=== PATIENT | male | born 1945 | race African-American/Black ===

== ENCOUNTER 2020-11-12 11:03 | Inpatient (IN) ==
[2020-11-12] MEDS ORDERED: ALBUTEROL/IPRATROPIUM 3 ML NEB RESP TX STA (11:33)
[2020-11-12 11:39] LABS: Basophils % 0.2 % (0.0-0.8); Eosinophils # 0.3 10*3/uL (0.0-0.87); Eosinophils % 2.8 % (0.00-10.9); Hematocrit 39.2 VOL% (42.0-52.0); Hemoglobin 13.3 GM/DL (14.0-18.0); Immature Granulocytes % 0.7 %; Immature Granulocytes Absolute 0.07 #; Lymphocytes # 1.2 10*3/uL (1.4-4.0); Lymphocytes % 11.8 % (21.2-54.2); Mean Corpuscular HGB Conc 33.9 GM/DL (32-36); Mean Corpuscular Volume 88.7 FL (87-102); Mean Platelet Volume 9.7 FL (9.6-12.0); Monocytes % 6.9 % (1.7-12.7); Neutrophils % 77.6 % (38.7-73.9); Platelet Count 334 T/CUMM (130-400); Red Blood Count 4.42 MC/CUMM (3.8-5.5); Red Cell Distribution Width 12.7 % (9.3-17.3); White Blood Count 10.2 T/CUMM (4-12)
[2020-11-12 12:01] LABS: Albumin 2.4 G/DL (3.4-5.0); Bilirubin,Total 1.2 MG/DL (0.2-1.0); Calcium 8.3 MG/DL (8.5-10.1); Ferritin 1414.8 ng/ml (26-388); Osmolality,Calculated 280.4 MOS/KG (273-304); Total Protein 7.7 G/DL (6.4-8.3)
[2020-11-12] MEDS ORDERED: ENOXAPARIN 60 MG/0.6 ML SYRINGE SUBCUT SCH (14:00)
[2020-11-12] MEDS ORDERED: ONDANSETRON 4 MG/2 ML VIAL IV PRN (14:04)
[2020-11-12] MEDS ORDERED: DEXTROSE 50% 25 GM/50 ML VIAL IV PRN (14:04)
[2020-11-12] MEDS ORDERED: PROMETHAZINE 25 MG TABLET PO PRN (14:04)
[2020-11-12] MEDS ORDERED: diphenhydrAMINE CAP 25 MG CAPSULE PO PRN (14:04)
[2020-11-12] MEDS ORDERED: guaiFENesin/DM ER 600-30 MG TABLET PO PRN (14:04)
[2020-11-12] MEDS ORDERED: ZALEPLON 5 MG CAPSULE PO PRN (14:04)
[2020-11-12] MEDS ORDERED: traZODone 50 MG TABLET PO PRN (14:04)
[2020-11-12] MEDS ORDERED: GLUCAGON 1 MG VIAL IM PRN (14:04)
[2020-11-12] MEDS ORDERED: PROMETHAZINE 25 MG/1 ML VIAL IM PRN (14:04)
[2020-11-12] MEDS ORDERED: hydrALAZINE 20 MG/1 ML VIAL IV PRN (14:04)
[2020-11-12 14:18] LABS: ABG HCO3 25.2 MMOL/L (20-26); ABG Oxygen Saturation 94.3 % (95-100); ABG PCO2 38.6 MM HG (35-48); ABG PH 7.424 (7.35-7.45); ABG TCO2 22.2 MMOL/L (23-27)
[2020-11-12] MEDS: ZINC GLUCONATE 50 MG TABLET PO SCH (14:19)
[2020-11-12] MEDS: ASCORBIC ACID 500 MG TABLET PO SCH ×2 (14:19→21:31)
[2020-11-12] MEDS: CHOLECALCIFEROL 1,000 UNIT TABLET PO SCH (14:19)
[2020-11-12] MEDS: FAMOTIDINE 20 MG TABLET PO SCH ×2 (14:19→21:28)
[2020-11-12] MEDS: DEXAMETHASONE 4 MG/1 ML VIAL IV SCH (14:19)
[2020-11-12] MEDS: CETIRIZINE 10 MG TABLET PO SCH (14:19)
[2020-11-12] MEDS ORDERED: AZITHROMYCIN INJ 500 MG in SODIUM CHLORIDE 0.9% 250 ML IV ONE (14:30)
[2020-11-12] MEDS ORDERED: REMDESIVIR 200 MG in SODIUM CHLORIDE 0.9% 210 ML IV ONE (16:00)
[2020-11-12] MEDS ORDERED: ENOXAPARIN 60 MG/0.6 ML SYRINGE SUBCUT ONE (16:00)
[2020-11-12] MEDS: cefTRIAXone 1,000 MG in SYRINGE 1 EACH IV SCH (16:16)
[2020-11-12] MEDS: CLORAZEPATE 3.75 MG TABLET PO SCH ×2 (16:22→21:31)
[2020-11-12] MEDS: MELATONIN 3 MG TABLET PO PRN (21:32)
[2020-11-13 04:14] LABS: ABG HCO3 24.4 MMOL/L (20-26); ABG Oxygen Saturation 95.2 % (95-100); ABG PCO2 44.6 MM HG (35-48); ABG PH 7.367 (7.35-7.45); ABG PO2 83.4 MM HG (80-95)
[2020-11-13 05:05] LABS: Basophils % 0.2 % (0.0-0.8); Eosinophils # 0.1 10*3/uL (0.0-0.87); Eosinophils % 0.8 % (0.00-10.9); Hematocrit 33.4 VOL% (42.0-52.0); Hemoglobin 11.7 GM/DL (14.0-18.0); Immature Granulocytes % 0.8 %; Immature Granulocytes Absolute 0.05 #; Lymphocytes # 1.3 10*3/uL (1.4-4.0); Lymphocytes % 18.9 % (21.2-54.2); Mean Corpuscular Volume 92.3 FL (87-102); Mean Platelet Volume 9.7 FL (9.6-12.0); Monocytes % 5.6 % (1.7-12.7); Neutrophils % 73.7 % (38.7-73.9); Platelet Count 275 T/CUMM (130-400); Red Blood Count 3.62 MC/CUMM (3.8-5.5); Red Cell Distribution Width 12.7 % (9.3-17.3); White Blood Count 6.6 T/CUMM (4-12)
[2020-11-13 05:29] LABS: Band Neutrophils 1 % (0-10); Lymphocytes 13 % (20-55); Platelet Estimate Normal; Segmented Neutrophils 79 % (50-85); Total Cells Counted 100
[2020-11-13 05:37] LABS: Ferritin 1211.5 ng/ml (26-388)
[2020-11-13 05:40] LABS: Risk Ratio 3.89; Thyroid Stimulating Hormone 0.906 uIU/ml (0.358-3.74); VLDL CHOLESTEROL 16.2 MG/DL
[2020-11-13] MEDS: ENOXAPARIN 100 MG/ML SYRINGE SUBCUT SCH ×2 (06:35→18:34)
[2020-11-13 06:42] LABS: Sedimentation Rate-Westergren 45 MM/HR (0-20)
[2020-11-13] MEDS: FAMOTIDINE 20 MG TABLET PO SCH ×2 (09:50→20:37)
[2020-11-13] MEDS: DEXAMETHASONE 4 MG/1 ML VIAL IV SCH (09:50)
[2020-11-13] MEDS: AZITHROMYCIN 250 MG TABLET PO SCH (09:50)
[2020-11-13] MEDS: CETIRIZINE 10 MG TABLET PO SCH (09:50)
[2020-11-13] MEDS: ZINC GLUCONATE 50 MG TABLET PO SCH (09:50)
[2020-11-13] MEDS: CHOLECALCIFEROL 1,000 UNIT TABLET PO SCH (09:50)
[2020-11-13] MEDS: CLORAZEPATE 3.75 MG TABLET PO SCH ×3 (09:50→20:37)
[2020-11-13] MEDS: PANTOPRAZOLE 40 MG TABLET PO SCH (09:50)
[2020-11-13] MEDS: ASCORBIC ACID 500 MG TABLET PO SCH ×2 (09:50→20:37)
[2020-11-13] MEDS: REMDESIVIR 100 MG in SODIUM CHLORIDE 0.9% 100 ML IV SCH (09:54)
[2020-11-13] MEDS ORDERED: SODIUM CHLORIDE 0.9% 1,000 ML IV PRN (14:36)
[2020-11-13] MEDS: cefTRIAXone 1,000 MG in SYRINGE 1 EACH IV SCH (16:05)
[2020-11-13] MEDS: MELATONIN 3 MG TABLET PO PRN (20:37)
[2020-11-14 04:00] LABS: ABG HCO3 25.2 MMOL/L (20-26); ABG Oxygen Saturation 96.1 % (95-100); ABG PCO2 45.7 MM HG (35-48); ABG PH 7.373 (7.35-7.45); ABG PO2 88.6 MM HG (80-95); ABG TCO2 23.7 MMOL/L (23-27); Allen Test Positive
[2020-11-14 04:43] LABS: Basophils % 0.4 % (0.0-0.8); Eosinophils # 0.1 10*3/uL (0.0-0.87); Eosinophils % 0.7 % (0.00-10.9); Hematocrit 36.3 VOL% (42.0-52.0); Hemoglobin 12.2 GM/DL (14.0-18.0); Immature Granulocytes % 0.6 %; Immature Granulocytes Absolute 0.06 #; Lymphocytes # 2.1 10*3/uL (1.4-4.0); Lymphocytes % 18.9 % (21.2-54.2); Mean Corpuscular HGB Conc 33.6 GM/DL (32-36); Mean Corpuscular Volume 92.1 FL (87-102); Mean Platelet Volume 10.3 FL (9.6-12.0); Monocytes % 4.7 % (1.7-12.7); Neutrophils % 74.7 % (38.7-73.9); Platelet Count 268 T/CUMM (130-400); Red Blood Count 3.94 MC/CUMM (3.8-5.5); Red Cell Distribution Width 12.5 % (9.3-17.3); White Blood Count 10.8 T/CUMM (4-12)
[2020-11-14 04:58] LABS: Ferritin 1284.6 ng/ml (26-388)
[2020-11-14] MEDS: ENOXAPARIN 100 MG/ML SYRINGE SUBCUT SCH ×2 (05:45→17:28)
[2020-11-14 05:50] LABS: Albumin 2.1 G/DL (3.4-5.0); Bilirubin,Total 0.8 MG/DL (0.2-1.0); Calcium 8.1 MG/DL (8.5-10.1); Osmolality,Calculated 283.3 MOS/KG (273-304); Total Protein 6.9 G/DL (6.4-8.3)
[2020-11-14 06:29] LABS: Sedimentation Rate-Westergren 67 MM/HR (0-20)
[2020-11-14] MEDS: PANTOPRAZOLE 40 MG TABLET PO SCH (09:10)
[2020-11-14] MEDS: CLORAZEPATE 3.75 MG TABLET PO SCH ×3 (09:10→20:15)
[2020-11-14] MEDS: ASCORBIC ACID 500 MG TABLET PO SCH ×2 (09:10→20:15)
[2020-11-14] MEDS: FAMOTIDINE 20 MG TABLET PO SCH ×2 (09:10→20:15)
[2020-11-14] MEDS: ZINC GLUCONATE 50 MG TABLET PO SCH (09:10)
[2020-11-14] MEDS: DEXAMETHASONE 4 MG/1 ML VIAL IV SCH (09:10)
[2020-11-14] MEDS: AZITHROMYCIN 250 MG TABLET PO SCH (09:10)
[2020-11-14] MEDS: CHOLECALCIFEROL 1,000 UNIT TABLET PO SCH (09:10)
[2020-11-14] MEDS: CETIRIZINE 10 MG TABLET PO SCH (09:10)
[2020-11-14] MEDS: REMDESIVIR 100 MG in SODIUM CHLORIDE 0.9% 100 ML IV SCH (09:13)
[2020-11-14] MEDS: cefTRIAXone 1,000 MG in SYRINGE 1 EACH IV SCH (15:00)
[2020-11-14 23:31] LABS: Specimen Source THROAT
[2020-11-15 05:02] LABS: Allen Test Positive
[2020-11-15 05:06] LABS: ABG Base Excess 1.5 MMOL/L (-2.5-2.5); ABG HCO3 26.5 MMOL/L (20-26); ABG Oxygen Saturation 94.6 % (95-100); ABG PCO2 43.4 MM HG (35-48); ABG PH 7.404 (7.35-7.45); ABG PO2 76.3 MM HG (80-95); ABG TCO2 27.9 MMOL/L (23-27)
[2020-11-15 05:11] LABS: Basophils % 0.4 % (0.0-0.8); Eosinophils # 0.1 10*3/uL (0.0-0.87); Eosinophils % 0.5 % (0.00-10.9); Hematocrit 36.6 VOL% (42.0-52.0); Immature Granulocytes % 0.7 %; Immature Granulocytes Absolute 0.08 #; Lymphocytes # 2.5 10*3/uL (1.4-4.0); Lymphocytes % 21.9 % (21.2-54.2); Mean Corpuscular HGB Conc 32.8 GM/DL (32-36); Mean Corpuscular Volume 90.1 FL (87-102); Mean Platelet Volume 10.1 FL (9.6-12.0); Monocytes % 5.1 % (1.7-12.7); Neutrophils % 71.4 % (38.7-73.9); Platelet Count 257 T/CUMM (130-400); Red Blood Count 4.06 MC/CUMM (3.8-5.5); Red Cell Distribution Width 12.5 % (9.3-17.3); White Blood Count 11.3 T/CUMM (4-12)
[2020-11-15 05:41] LABS: Albumin 2.1 G/DL (3.4-5.0); Bilirubin,Total 0.5 MG/DL (0.2-1.0); Calcium 8.5 MG/DL (8.5-10.1); Osmolality,Calculated 278.5 MOS/KG (273-304); Total Protein 7.3 G/DL (6.4-8.3)
[2020-11-15 05:43] LABS: Ferritin 1070.3 ng/ml (26-388)
[2020-11-15 06:19] LABS: Band Neutrophils 1 % (0-10); Eosinophils 1 % (0-10); Lymphocytes 20 % (20-55); Platelet Estimate Normal; Segmented Neutrophils 75 % (50-85); Total Cells Counted 100
[2020-11-15] MEDS: ENOXAPARIN 100 MG/ML SYRINGE SUBCUT SCH ×2 (06:40→19:19)
[2020-11-15 07:56] LABS: Sedimentation Rate-Westergren 88 MM/HR (0-20)
[2020-11-15] MEDS: PANTOPRAZOLE 40 MG TABLET PO SCH (10:06)
[2020-11-15] MEDS: FAMOTIDINE 20 MG TABLET PO SCH ×2 (10:06→21:14)
[2020-11-15] MEDS: CLORAZEPATE 3.75 MG TABLET PO SCH ×3 (10:06→21:14)
[2020-11-15] MEDS: CHOLECALCIFEROL 1,000 UNIT TABLET PO SCH (10:06)
[2020-11-15] MEDS: REMDESIVIR 100 MG in SODIUM CHLORIDE 0.9% 100 ML IV SCH (10:06)
[2020-11-15] MEDS: DEXAMETHASONE 4 MG/1 ML VIAL IV SCH (10:06)
[2020-11-15] MEDS: ASCORBIC ACID 500 MG TABLET PO SCH ×2 (10:06→21:14)
[2020-11-15] MEDS: ZINC GLUCONATE 50 MG TABLET PO SCH (10:07)
[2020-11-15] MEDS: CETIRIZINE 10 MG TABLET PO SCH (10:07)
[2020-11-15] MEDS: AZITHROMYCIN 250 MG TABLET PO SCH (10:07)
[2020-11-15] MEDS: cefTRIAXone 1,000 MG in SYRINGE 1 EACH IV SCH (16:22)
[2020-11-16 03:50] LABS: ABG Base Excess 2.9 MMOL/L (-2.5-2.5); ABG HCO3 26.9 MMOL/L (20-26); ABG PCO2 45.4 MM HG (35-48); ABG PH 7.402 (7.35-7.45); ABG PO2 76.8 MM HG (80-95); ABG TCO2 25.1 MMOL/L (23-27)
[2020-11-16 06:04] LABS: Basophils % 0.3 % (0.0-0.8); Eosinophils % 0.3 % (0.00-10.9); Hematocrit 39.4 VOL% (42.0-52.0); Immature Granulocytes % 0.8 %; Lymphocytes # 2.7 10*3/uL (1.4-4.0); Lymphocytes % 22.4 % (21.2-54.2); Mean Corpuscular Volume 89.5 FL (87-102); Mean Platelet Volume 10.7 FL (9.6-12.0); Monocytes % 5.6 % (1.7-12.7); Neutrophils % 70.6 % (38.7-73.9); Platelet Count 232 T/CUMM (130-400); Red Cell Distribution Width 12.7 % (9.3-17.3); White Blood Count 11.9 T/CUMM (4-12)
[2020-11-16] MEDS: ENOXAPARIN 100 MG/ML SYRINGE SUBCUT SCH ×2 (06:14→17:00)
[2020-11-16 06:19] LABS: Bilirubin,Total 0.5 MG/DL (0.2-1.0); Calcium 8.6 MG/DL (8.5-10.1); Ferritin 1027.9 ng/ml (26-388); Osmolality,Calculated 280.4 MOS/KG (273-304); Total Protein 7.3 G/DL (6.4-8.3)
[2020-11-16 07:49] LABS: Sedimentation Rate-Westergren 77 MM/HR (0-20)
[2020-11-16] MEDS: DEXAMETHASONE 4 MG/1 ML VIAL IV SCH (08:51)
[2020-11-16] MEDS: PANTOPRAZOLE 40 MG TABLET PO SCH (08:52)
[2020-11-16] MEDS: CETIRIZINE 10 MG TABLET PO SCH (08:52)
[2020-11-16] MEDS: FAMOTIDINE 20 MG TABLET PO SCH ×2 (08:52→20:54)
[2020-11-16] MEDS: CHOLECALCIFEROL 1,000 UNIT TABLET PO SCH (08:52)
[2020-11-16] MEDS: CLORAZEPATE 3.75 MG TABLET PO SCH ×3 (08:52→20:54)
[2020-11-16] MEDS: ASCORBIC ACID 500 MG TABLET PO SCH ×2 (08:52→20:54)
[2020-11-16] MEDS: AZITHROMYCIN 250 MG TABLET PO SCH (08:52)
[2020-11-16] MEDS: REMDESIVIR 100 MG in SODIUM CHLORIDE 0.9% 100 ML IV SCH (09:43)
[2020-11-16] MEDS: ZINC GLUCONATE 50 MG TABLET PO SCH (11:57)
[2020-11-16] MEDS: cefTRIAXone 1,000 MG in SYRINGE 1 EACH IV SCH (15:18)
[2020-11-17 05:17] LABS: ABG Base Excess 2.1 MMOL/L (-2.5-2.5); ABG HCO3 26.2 MMOL/L (20-26); ABG Oxygen Saturation 94.7 % (95-100); ABG PCO2 44.5 MM HG (35-48); ABG PH 7.397 (7.35-7.45); ABG PO2 77.5 MM HG (80-95); ABG TCO2 24.1 MMOL/L (23-27)
[2020-11-17 05:17] LABS: Basophils # 0.1 10*3/uL (0.0-0.2); Basophils % 0.5 % (0.0-0.8); Eosinophils % 0.2 % (0.00-10.9); Hematocrit 39.1 VOL% (42.0-52.0); Hemoglobin 12.9 GM/DL (14.0-18.0); Immature Granulocytes % 1.1 %; Immature Granulocytes Absolute 0.12 #; Lymphocytes # 2.1 10*3/uL (1.4-4.0); Lymphocytes % 18.7 % (21.2-54.2); Mean Corpuscular Volume 90.1 FL (87-102); Mean Platelet Volume 10.9 FL (9.6-12.0); Monocytes % 5.6 % (1.7-12.7); Neutrophils % 73.9 % (38.7-73.9); Platelet Count 255 T/CUMM (130-400); Red Blood Count 4.34 MC/CUMM (3.8-5.5); Red Cell Distribution Width 12.7 % (9.3-17.3); White Blood Count 11.4 T/CUMM (4-12)
[2020-11-17] MEDS: ENOXAPARIN 100 MG/ML SYRINGE SUBCUT SCH ×2 (05:35→20:59)
[2020-11-17 05:45] LABS: Ferritin 927.2 ng/ml (26-388)
[2020-11-17 05:46] LABS: Albumin 2.3 G/DL (3.4-5.0); Bilirubin,Total 0.5 MG/DL (0.2-1.0); Calcium 8.6 MG/DL (8.5-10.1); Osmolality,Calculated 281.4 MOS/KG (273-304); Total Protein 7.4 G/DL (6.4-8.3)
[2020-11-17 06:35] LABS: Sedimentation Rate-Westergren 75 MM/HR (0-20)
[2020-11-17] MEDS: ZINC GLUCONATE 50 MG TABLET PO SCH (08:29)
[2020-11-17] MEDS: PANTOPRAZOLE 40 MG TABLET PO SCH (08:29)
[2020-11-17] MEDS: FAMOTIDINE 20 MG TABLET PO SCH ×2 (08:29→20:59)
[2020-11-17] MEDS: DEXAMETHASONE 4 MG/1 ML VIAL IV SCH (08:29)
[2020-11-17] MEDS: CHOLECALCIFEROL 1,000 UNIT TABLET PO SCH (08:29)
[2020-11-17] MEDS: CLORAZEPATE 3.75 MG TABLET PO SCH ×3 (09:04→20:59)
[2020-11-17] MEDS: ASCORBIC ACID 500 MG TABLET PO SCH ×2 (10:24→20:59)
[2020-11-17] MEDS: CETIRIZINE 10 MG TABLET PO SCH (10:24)
[2020-11-17] MEDS: cefTRIAXone 1,000 MG in SYRINGE 1 EACH IV SCH (14:47)
[2020-11-18 05:23] LABS: Basophils # 0.1 10*3/uL (0.0-0.2); Basophils % 0.4 % (0.0-0.8); Eosinophils # 0.1 10*3/uL (0.0-0.87); Eosinophils % 0.6 % (0.00-10.9); Hematocrit 37.1 VOL% (42.0-52.0); Hemoglobin 12.2 GM/DL (14.0-18.0); Immature Granulocytes % 1.7 %; Immature Granulocytes Absolute 0.24 #; Lymphocytes # 3.5 10*3/uL (1.4-4.0); Lymphocytes % 25.5 % (21.2-54.2); Mean Corpuscular HGB Conc 32.9 GM/DL (32-36); Mean Corpuscular Volume 89.2 FL (87-102); Mean Platelet Volume 10.3 FL (9.6-12.0); Monocytes % 6.5 % (1.7-12.7); Neutrophils % 65.3 % (38.7-73.9); Platelet Count 275 T/CUMM (130-400); Red Blood Count 4.16 MC/CUMM (3.8-5.5); Red Cell Distribution Width 13.1 % (9.3-17.3); White Blood Count 13.7 T/CUMM (4-12)
[2020-11-18 05:43] LABS: Ferritin 864.9 ng/ml (26-388)
[2020-11-18 05:44] LABS: Bilirubin,Total 0.6 MG/DL (0.2-1.0); Calcium 8.7 MG/DL (8.5-10.1); Osmolality,Calculated 281.4 MOS/KG (273-304); Total Protein 6.9 G/DL (6.4-8.3)
[2020-11-18 07:19] LABS: Sedimentation Rate-Westergren 58 MM/HR (0-20)
[2020-11-18] MEDS: CHOLECALCIFEROL 1,000 UNIT TABLET PO SCH (09:12)
[2020-11-18] MEDS: FAMOTIDINE 20 MG TABLET PO SCH (09:12)
[2020-11-18] MEDS: DEXAMETHASONE 4 MG/1 ML VIAL IV SCH (09:12)
[2020-11-18] MEDS: CLORAZEPATE 3.75 MG TABLET PO SCH ×2 (09:12→15:43)
[2020-11-18] MEDS: ENOXAPARIN 100 MG/ML SYRINGE SUBCUT SCH (09:12)
[2020-11-18] MEDS: PANTOPRAZOLE 40 MG TABLET PO SCH (09:12)
[2020-11-18] MEDS: CETIRIZINE 10 MG TABLET PO SCH (09:12)
[2020-11-18] MEDS: ASCORBIC ACID 500 MG TABLET PO SCH (09:12)
[2020-11-18] MEDS: ZINC GLUCONATE 50 MG TABLET PO SCH (09:12)
[2020-11-18] MEDS: cefTRIAXone 1,000 MG in SYRINGE 1 EACH IV SCH (15:43)
[2020-11-18 16:26] VITALS: BP 109/65
== END 2020-11-18 17:20 | disposition home or self-care (01) | DRG 177 ==
LOC: EDUNIT# → EDBD → N.ED 11:03 → N.EDINP 14:04 → SUATTDRO 14:04 → N.2E 14:30
PROVIDERS: ADMIT Internal Medicine; ATTEND Internal Medicine

== ENCOUNTER 2020-12-10 13:29 | Inpatient (IN) ==
[2020-12-10] MEDS ORDERED: ALBUTEROL/IPRATROPIUM 3 ML NEB RESP TX STA (13:58)
[2020-12-10 14:20] LABS: Basophils # 0.1 10*3/uL (0.0-0.2); Basophils % 0.5 % (0.0-0.8); Eosinophils # 0.2 10*3/uL (0.0-0.87); Hematocrit 43.9 VOL% (42.0-52.0); Hemoglobin 13.7 GM/DL (14.0-18.0); Immature Granulocytes % 0.6 %; Immature Granulocytes Absolute 0.06 #; Lymphocytes # 1.6 10*3/uL (1.4-4.0); Lymphocytes % 15.1 % (21.2-54.2); Mean Corpuscular HGB Conc 31.2 GM/DL (32-36); Mean Corpuscular Volume 90.3 FL (87-102); Mean Platelet Volume 10.3 FL (9.6-12.0); Monocytes % 7.2 % (1.7-12.7); Neutrophils % 74.6 % (38.7-73.9); Platelet Count 374 T/CUMM (130-400); Red Blood Count 4.86 MC/CUMM (3.8-5.5); Red Cell Distribution Width 14.3 % (9.3-17.3); White Blood Count 10.3 T/CUMM (4-12)
[2020-12-10 14:33] LABS: INR 1.3; PT Patient Result 13.3 SECS (9.8-11.9)
[2020-12-10 14:41] LABS: Albumin 2.8 G/DL (3.4-5.0); Bilirubin,Total 0.7 MG/DL (0.2-1.0); Calcium 8.9 MG/DL (8.5-10.1); Osmolality,Calculated 273.7 MOS/KG (273-304); Potassium 4.3 MMOL/L (3.5-5.1); Total Protein 7.9 G/DL (6.4-8.3)
[2020-12-10 15:09] LABS: ABG Base Excess 3.3 MMOL/L (-2.5-2.5); ABG HCO3 27.2 MMOL/L (20-26); ABG Oxygen Saturation 91.4 % (95-100); ABG PCO2 38.3 MM HG (35-48); ABG PO2 60.8 MM HG (80-95)
[2020-12-10] MEDS ORDERED: CETIRIZINE 10 MG TABLET PO PRN (16:40)
[2020-12-10] MEDS ORDERED: ACETAMINOPHEN 325 MG TABLET PO PRN (16:41)
[2020-12-10] MEDS ORDERED: GLUCAGON 1 MG VIAL IM PRN (16:41)
[2020-12-10] MEDS ORDERED: ONDANSETRON 4 MG/2 ML VIAL IV PRN (16:41)
[2020-12-10] MEDS ORDERED: DEXTROSE 50% 25 GM/50 ML VIAL IV PRN (16:41)
[2020-12-10 17:12] LABS: Thyroid Stimulating Hormone 3.82 uIU/ml (0.358-3.74)
[2020-12-10] MEDS: DEXAMETHASONE 4 MG/1 ML VIAL IV SCH (21:45)
[2020-12-10] MEDS: ASCORBIC ACID 500 MG TABLET PO SCH (21:52)
[2020-12-10] MEDS: DOXYCYCLINE HYCLATE 100 MG CAPSULE PO SCH (21:52)
[2020-12-10] MEDS: FAMOTIDINE 20 MG TABLET PO SCH (21:52)
[2020-12-10] MEDS: APIXABAN 5 MG TABLET PO SCH (21:52)
[2020-12-11 03:58] LABS: ABG Base Excess 4.1 MMOL/L (-2.5-2.5); ABG HCO3 27.8 MMOL/L (20-26); ABG Oxygen Saturation 89.3 % (95-100); ABG PCO2 44.4 MM HG (35-48); ABG PH 7.426 (7.35-7.45); ABG PO2 58.7 MM HG (80-95); ABG TCO2 24.4 MMOL/L (23-27)
[2020-12-11 05:46] LABS: Basophils % 0.1 % (0.0-0.8); Hematocrit 36.1 VOL% (42.0-52.0); Hemoglobin 11.8 GM/DL (14.0-18.0); Immature Granulocytes % 0.6 %; Immature Granulocytes Absolute 0.05 #; Lymphocytes # 0.7 10*3/uL (1.4-4.0); Lymphocytes % 7.4 % (21.2-54.2); Mean Corpuscular HGB Conc 32.7 GM/DL (32-36); Mean Corpuscular Volume 88.5 FL (87-102); Mean Platelet Volume 10.4 FL (9.6-12.0); Monocytes % 1.9 % (1.7-12.7); Platelet Count 324 T/CUMM (130-400); Red Blood Count 4.08 MC/CUMM (3.8-5.5); Red Cell Distribution Width 13.9 % (9.3-17.3); White Blood Count 8.9 T/CUMM (4-12)
[2020-12-11 05:59] LABS: Calcium 9.2 MG/DL (8.5-10.1); Osmolality,Calculated 275.7 MOS/KG (273-304); Potassium 4.4 MMOL/L (3.5-5.1)
[2020-12-11 08:30] LABS: Free T4 (Free Thyroxine) 0.84 NG/DL (0.76-1.46)
[2020-12-11] MEDS: CHOLECALCIFEROL 1,000 UNIT TABLET PO SCH (08:43)
[2020-12-11] MEDS: APIXABAN 5 MG TABLET PO SCH ×2 (08:43→20:42)
[2020-12-11] MEDS: DEXAMETHASONE 4 MG/1 ML VIAL IV SCH (08:43)
[2020-12-11] MEDS: ASCORBIC ACID 500 MG TABLET PO SCH ×2 (08:43→20:42)
[2020-12-11] MEDS: ZINC SULFATE 220 MG CAPSULE PO SCH (08:43)
[2020-12-11] MEDS: AZITHROMYCIN 250 MG TABLET PO SCH (08:43)
[2020-12-11] MEDS: DOXYCYCLINE HYCLATE 100 MG CAPSULE PO SCH ×2 (08:43→20:42)
[2020-12-11 09:31] LABS: ABG Base Excess 3.2 MMOL/L (-2.5-2.5); ABG HCO3 27.2 MMOL/L (20-26); ABG Oxygen Saturation 94.6 % (95-100); ABG PCO2 40.4 MM HG (35-48); ABG PH 7.442 (7.35-7.45); ABG PO2 69.1 MM HG (80-95); ABG TCO2 24.2 MMOL/L (23-27)
[2020-12-11] MEDS: FAMOTIDINE 20 MG TABLET PO SCH (20:42)
[2020-12-12 05:31] LABS: Basophils % 0.1 % (0.0-0.8); Hematocrit 36.7 VOL% (42.0-52.0); Hemoglobin 11.9 GM/DL (14.0-18.0); Immature Granulocytes % 0.7 %; Immature Granulocytes Absolute 0.12 #; Lymphocytes # 1.2 10*3/uL (1.4-4.0); Lymphocytes % 6.7 % (21.2-54.2); Mean Corpuscular HGB Conc 32.4 GM/DL (32-36); Mean Corpuscular Volume 85.9 FL (87-102); Mean Platelet Volume 10.3 FL (9.6-12.0); Monocytes % 4.6 % (1.7-12.7); Neutrophils % 87.9 % (38.7-73.9); Platelet Count 345 T/CUMM (130-400); Red Blood Count 4.27 MC/CUMM (3.8-5.5); Red Cell Distribution Width 13.9 % (9.3-17.3); White Blood Count 17.6 T/CUMM (4-12)
[2020-12-12 06:12] LABS: Calcium 8.8 MG/DL (8.5-10.1); Osmolality,Calculated 282.3 MOS/KG (273-304)
[2020-12-12 08:15] LABS: ABG HCO3 27.7 MMOL/L (20-26); ABG Oxygen Saturation 83.8 % (95-100); ABG PCO2 46.2 MM HG (35-48); ABG PH 7.411 (7.35-7.45); ABG PO2 52.1 MM HG (80-95); ABG TCO2 26.1 MMOL/L (23-27); Allen Test Positive
[2020-12-12] MEDS: DEXAMETHASONE 4 MG/1 ML VIAL IV SCH (09:26)
[2020-12-12] MEDS: ZINC SULFATE 220 MG CAPSULE PO SCH (09:26)
[2020-12-12] MEDS: CHOLECALCIFEROL 1,000 UNIT TABLET PO SCH (09:27)
[2020-12-12] MEDS: APIXABAN 5 MG TABLET PO SCH ×2 (09:27→20:28)
[2020-12-12] MEDS: ASCORBIC ACID 500 MG TABLET PO SCH ×2 (09:27→20:27)
[2020-12-12] MEDS: AZITHROMYCIN 250 MG TABLET PO SCH (09:27)
[2020-12-12] MEDS: DOXYCYCLINE HYCLATE 100 MG CAPSULE PO SCH (09:27)
[2020-12-12] MEDS: CEFEPIME 1,000 MG in SODIUM CHLORIDE 0.9% 100 ML IV SCH ×2 (15:00→20:27)
[2020-12-12] MEDS ORDERED: FUROSEMIDE 40 MG/4 ML VIAL IV ONE (18:20)
[2020-12-12] MEDS: methylPREDNISolone SOD SUC 40 MG/1 ML VIAL IV SCH (18:38)
[2020-12-12] MEDS: FAMOTIDINE 20 MG TABLET PO SCH (20:27)
[2020-12-13] MEDS: CEFEPIME 1,000 MG in SODIUM CHLORIDE 0.9% 100 ML IV SCH ×4 (02:33→20:37)
[2020-12-13] MEDS: methylPREDNISolone SOD SUC 40 MG/1 ML VIAL IV SCH ×3 (02:33→16:42)
[2020-12-13 05:18] LABS: Basophils % 0.1 % (0.0-0.8); Hematocrit 35.9 VOL% (42.0-52.0); Hemoglobin 11.7 GM/DL (14.0-18.0); Immature Granulocytes % 1.3 %; Immature Granulocytes Absolute 0.28 #; Lymphocytes # 0.9 10*3/uL (1.4-4.0); Lymphocytes % 4.1 % (21.2-54.2); Mean Corpuscular HGB Conc 32.6 GM/DL (32-36); Mean Corpuscular Volume 87.6 FL (87-102); Mean Platelet Volume 10.2 FL (9.6-12.0); Monocytes % 3.3 % (1.7-12.7); Neutrophils % 91.2 % (38.7-73.9); Platelet Count 372 T/CUMM (130-400); White Blood Count 20.8 T/CUMM (4-12)
[2020-12-13 05:41] LABS: Calcium 8.8 MG/DL (8.5-10.1); Potassium 3.9 MMOL/L (3.5-5.1)
[2020-12-13 06:18] LABS: Lymphocytes 5 % (20-55); Platelet Estimate Normal; Segmented Neutrophils 91 % (50-85); Total Cells Counted 100
[2020-12-13 06:19] LABS: Hypochromasia 2+; Target Cells 2+
[2020-12-13] MEDS: ZINC SULFATE 220 MG CAPSULE PO SCH (08:25)
[2020-12-13] MEDS: AZITHROMYCIN 250 MG TABLET PO SCH (08:25)
[2020-12-13] MEDS: APIXABAN 5 MG TABLET PO SCH ×2 (08:25→20:37)
[2020-12-13] MEDS: ASCORBIC ACID 500 MG TABLET PO SCH ×2 (08:25→20:37)
[2020-12-13] MEDS: CHOLECALCIFEROL 1,000 UNIT TABLET PO SCH (08:26)
[2020-12-13] MEDS: ALBUTEROL 2.5 MG/3 ML NEB RESP TX PRN (11:37)
[2020-12-13] MEDS: FAMOTIDINE 20 MG TABLET PO SCH (20:37)
[2020-12-14] MEDS: methylPREDNISolone SOD SUC 40 MG/1 ML VIAL IV SCH ×3 (01:18→16:39)
[2020-12-14] MEDS: CEFEPIME 1,000 MG in SODIUM CHLORIDE 0.9% 100 ML IV SCH ×4 (03:33→20:46)
[2020-12-14] MEDS ORDERED: MAGNESIUM HYDROXIDE SUSP 30 ML UDCUP PO PRN (07:35)
[2020-12-14] MEDS: AZITHROMYCIN 250 MG TABLET PO SCH (08:51)
[2020-12-14] MEDS: ZINC SULFATE 220 MG CAPSULE PO SCH (08:51)
[2020-12-14] MEDS: ASCORBIC ACID 500 MG TABLET PO SCH ×2 (08:51→20:50)
[2020-12-14] MEDS: APIXABAN 5 MG TABLET PO SCH ×2 (08:52→20:50)
[2020-12-14] MEDS: CHOLECALCIFEROL 1,000 UNIT TABLET PO SCH (08:52)
[2020-12-14] MEDS ORDERED: MORPHINE 4 MG/1 ML VIAL IV ONE (09:13)
[2020-12-14 09:27] LABS: ABG Base Excess 3.9 MMOL/L (-2.5-2.5); ABG HCO3 28.3 MMOL/L (20-26); ABG Oxygen Saturation 79.7 % (95-100); ABG PCO2 41.9 MM HG (35-48); ABG PH 7.447 (7.35-7.45); ABG PO2 45.9 MM HG (80-95); ABG TCO2 29.6 MMOL/L (23-27)
[2020-12-14] MEDS: ALBUTEROL 2.5 MG/3 ML NEB RESP TX PRN (09:40)
[2020-12-14] MEDS ORDERED: FUROSEMIDE 40 MG/4 ML VIAL IV ONE (10:37)
[2020-12-14] MEDS: POLYETHYLENE GLYCOL POWDER 17 GM PACK PO SCH ×2 (16:39→20:51)
[2020-12-14] MEDS: FAMOTIDINE 20 MG TABLET PO SCH (20:50)
[2020-12-14 21:54] LABS: ABG Base Excess 5.2 MMOL/L (-2.5-2.5); ABG HCO3 28.9 MMOL/L (20-26); ABG Oxygen Saturation 87.4 % (95-100); ABG PCO2 44.1 MM HG (35-48); ABG PH 7.442 (7.35-7.45); ABG PO2 56.5 MM HG (80-95); ABG TCO2 26.3 MMOL/L (23-27)
[2020-12-14] MEDS ORDERED: HALOPERIDOL 5 MG/ML AMP IV ONE (22:08)
[2020-12-15] MEDS: methylPREDNISolone SOD SUC 40 MG/1 ML VIAL IV SCH ×3 (01:02→17:25)
[2020-12-15] MEDS: HALOPERIDOL 5 MG/ML AMP IV SCH ×2 (01:42→09:51)
[2020-12-15] MEDS: CEFEPIME 1,000 MG in SODIUM CHLORIDE 0.9% 100 ML IV SCH ×4 (03:05→20:16)
[2020-12-15 03:08] LABS: ABG Base Excess 5.3 MMOL/L (-2.5-2.5); ABG Oxygen Saturation 87.6 % (95-100); ABG PCO2 44.2 MM HG (35-48); ABG PH 7.442 (7.35-7.45); ABG PO2 55.9 MM HG (80-95); ABG TCO2 26.4 MMOL/L (23-27)
[2020-12-15 04:42] LABS: Basophils % 0.1 % (0.0-0.8); Hematocrit 37.7 VOL% (42.0-52.0); Hemoglobin 12.3 GM/DL (14.0-18.0); Immature Granulocytes % 1.5 %; Immature Granulocytes Absolute 0.35 #; Lymphocytes # 0.7 10*3/uL (1.4-4.0); Lymphocytes % 3.1 % (21.2-54.2); Mean Corpuscular HGB Conc 32.6 GM/DL (32-36); Mean Corpuscular Volume 87.7 FL (87-102); Mean Platelet Volume 10.8 FL (9.6-12.0); Monocytes % 5.4 % (1.7-12.7); Neutrophils % 89.9 % (38.7-73.9); Platelet Count 335 T/CUMM (130-400); Red Cell Distribution Width 14.6 % (9.3-17.3); White Blood Count 22.7 T/CUMM (4-12)
[2020-12-15 05:06] LABS: Albumin 2.2 G/DL (3.4-5.0); Bilirubin,Total 0.6 MG/DL (0.2-1.0); Osmolality,Calculated 288.3 MOS/KG (273-304); Total Protein 7.4 G/DL (6.4-8.3)
[2020-12-15 05:07] LABS: Lymphocytes 8 % (20-55); Platelet Estimate Normal; Segmented Neutrophils 90 % (50-85); Total Cells Counted 100
[2020-12-15] MEDS ORDERED: ALPRAZolam 0.5 MG TABLET PO PRN (07:28)
[2020-12-15] MEDS: APIXABAN 5 MG TABLET PO SCH ×2 (09:01→20:17)
[2020-12-15] MEDS: ZINC SULFATE 220 MG CAPSULE PO SCH (09:02)
[2020-12-15] MEDS: AZITHROMYCIN 250 MG TABLET PO SCH (09:02)
[2020-12-15] MEDS: CHOLECALCIFEROL 1,000 UNIT TABLET PO SCH (09:02)
[2020-12-15] MEDS: ASCORBIC ACID 500 MG TABLET PO SCH ×2 (09:02→20:17)
[2020-12-15] MEDS: POLYETHYLENE GLYCOL POWDER 17 GM PACK PO SCH ×2 (09:46→20:16)
[2020-12-15] MEDS ORDERED: HALOPERIDOL 5 MG/ML AMP IM PRN ×2 (09:48→09:52)
[2020-12-15] MEDS: HALOPERIDOL 5 MG/ML AMP IM PRN ×2 (12:35→17:51)
[2020-12-15] MEDS ORDERED: FUROSEMIDE 40 MG/4 ML VIAL IV ONE (13:00)
[2020-12-15] MEDS: RIVASTIGMINE 9.5 MG/24 HR PATCH TRANSDERM SCH (14:27)
[2020-12-15] MEDS: FAMOTIDINE 20 MG TABLET PO SCH (20:17)
[2020-12-16] MEDS: methylPREDNISolone SOD SUC 40 MG/1 ML VIAL IV SCH ×3 (01:59→20:53)
[2020-12-16] MEDS: CEFEPIME 1,000 MG in SODIUM CHLORIDE 0.9% 100 ML IV SCH ×4 (01:59→20:56)
[2020-12-16 04:02] LABS: Basophils % 0.1 % (0.0-0.8); Hematocrit 37.6 VOL% (42.0-52.0); Hemoglobin 12.1 GM/DL (14.0-18.0); Immature Granulocytes % 0.9 %; Immature Granulocytes Absolute 0.18 #; Lymphocytes % 4.8 % (21.2-54.2); Mean Corpuscular HGB Conc 32.2 GM/DL (32-36); Mean Corpuscular Volume 88.1 FL (87-102); Mean Platelet Volume 11.1 FL (9.6-12.0); Monocytes % 4.8 % (1.7-12.7); Neutrophils % 89.4 % (38.7-73.9); Platelet Count 282 T/CUMM (130-400); Red Blood Count 4.27 MC/CUMM (3.8-5.5); Red Cell Distribution Width 14.8 % (9.3-17.3); White Blood Count 20.1 T/CUMM (4-12)
[2020-12-16 04:19] LABS: Albumin 2.2 G/DL (3.4-5.0); Bilirubin,Total 1.4 MG/DL (0.2-1.0); Calcium 8.6 MG/DL (8.5-10.1); Osmolality,Calculated 294.8 MOS/KG (273-304); Potassium 4.2 MMOL/L (3.5-5.1); Total Protein 7.2 G/DL (6.4-8.3)
[2020-12-16 04:23] LABS: Hypochromasia 1+; Lymphocytes 8 % (20-55); Microcytosis 1+; Platelet Estimate Adequate; Segmented Neutrophils 89 % (50-85); Total Cells Counted 100
[2020-12-16 04:31] LABS: ABG Base Excess 7.9 MMOL/L (-2.5-2.5); ABG HCO3 31.7 MMOL/L (20-26); ABG Oxygen Saturation 95.8 % (95-100); ABG PCO2 53.5 MM HG (35-48); ABG PH 7.415 (7.35-7.45); ABG PO2 82.1 MM HG (80-95); Allen Test Positive; Pt O2 Delivery Device BIPAP
[2020-12-16] MEDS: CHOLECALCIFEROL 1,000 UNIT TABLET PO SCH (08:27)
[2020-12-16] MEDS: ZINC SULFATE 220 MG CAPSULE PO SCH (08:27)
[2020-12-16] MEDS: ASCORBIC ACID 500 MG TABLET PO SCH ×2 (08:27→20:53)
[2020-12-16] MEDS: APIXABAN 5 MG TABLET PO SCH ×2 (08:27→20:56)
[2020-12-16] MEDS: RIVASTIGMINE 9.5 MG/24 HR PATCH TRANSDERM SCH (08:29)
[2020-12-16] MEDS: POLYETHYLENE GLYCOL POWDER 17 GM PACK PO SCH ×2 (08:30→21:00)
[2020-12-16] MEDS: FAMOTIDINE 20 MG TABLET PO SCH (20:53)
[2020-12-17] MEDS: CEFEPIME 1,000 MG in SODIUM CHLORIDE 0.9% 100 ML IV SCH ×4 (02:53→21:15)
[2020-12-17 04:44] LABS: Allen Test Positive; Pt O2 Delivery Device Other
[2020-12-17 04:45] LABS: ABG Base Excess 6.2 MMOL/L (-2.5-2.5); ABG HCO3 31.1 MMOL/L (20-26); ABG Oxygen Saturation 91.6 % (95-100); ABG PCO2 45.6 MM HG (35-48); ABG PH 7.451 (7.35-7.45); ABG PO2 63.1 MM HG (80-95); ABG TCO2 32.5 MMOL/L (23-27)
[2020-12-17 05:03] LABS: Basophils % 0.1 % (0.0-0.8); Hematocrit 41.3 VOL% (42.0-52.0); Immature Granulocytes % 1.2 %; Lymphocytes # 0.7 10*3/uL (1.4-4.0); Lymphocytes % 2.7 % (21.2-54.2); Mean Corpuscular Volume 90.4 FL (87-102); Mean Platelet Volume 10.6 FL (9.6-12.0); Monocytes % 4.2 % (1.7-12.7); Neutrophils % 91.8 % (38.7-73.9); Platelet Count 230 T/CUMM (130-400); Red Blood Count 4.57 MC/CUMM (3.8-5.5); Red Cell Distribution Width 14.9 % (9.3-17.3); White Blood Count 24.4 T/CUMM (4-12)
[2020-12-17 05:04] LABS: Hemoglobin 12.8 GM/DL (14.0-18.0)
[2020-12-17 05:06] LABS: Lymphocytes 3 % (20-55); Platelet Estimate Normal; Segmented Neutrophils 96 % (50-85); Total Cells Counted 100
[2020-12-17 05:12] LABS: Albumin 2.1 G/DL (3.4-5.0); Bilirubin,Total 0.6 MG/DL (0.2-1.0); Ferritin 1406.7 ng/ml (26-388); Osmolality,Calculated 288.4 MOS/KG (273-304); Potassium 4.6 MMOL/L (3.5-5.1); Total Protein 7.4 G/DL (6.4-8.3)
[2020-12-17] MEDS: ASCORBIC ACID 500 MG TABLET PO SCH ×2 (08:34→21:29)
[2020-12-17] MEDS: methylPREDNISolone SOD SUC 40 MG/1 ML VIAL IV SCH ×2 (08:34→21:14)
[2020-12-17] MEDS: ZINC SULFATE 220 MG CAPSULE PO SCH (08:34)
[2020-12-17] MEDS: CHOLECALCIFEROL 1,000 UNIT TABLET PO SCH (08:34)
[2020-12-17] MEDS: APIXABAN 5 MG TABLET PO SCH ×2 (08:35→21:29)
[2020-12-17] MEDS: POLYETHYLENE GLYCOL POWDER 17 GM PACK PO SCH ×2 (08:36→21:29)
[2020-12-17] MEDS: RIVASTIGMINE 9.5 MG/24 HR PATCH TRANSDERM SCH ×2 (09:19→09:59)
[2020-12-17] MEDS: FUROSEMIDE 40 MG/4 ML VIAL IV SCH (11:53)
[2020-12-17] MEDS: HALOPERIDOL 5 MG/ML AMP IM PRN (20:22)
[2020-12-17] MEDS: FAMOTIDINE 20 MG TABLET PO SCH (21:29)
[2020-12-17 22:32] LABS: ABG Base Excess 3.4 MMOL/L (-2.5-2.5); ABG HCO3 29.6 MMOL/L (20-26); ABG Oxygen Saturation 93.8 % (95-100); ABG PCO2 51.2 MM HG (35-48); ABG PO2 78.6 MM HG (80-95); ABG TCO2 31.2 MMOL/L (23-27); Allen Test Positive; Pt O2 Delivery Device BIPAP
[2020-12-18] MEDS: HALOPERIDOL 5 MG/ML AMP IM PRN ×2 (00:07→09:12)
[2020-12-18] MEDS: LORazepam 2 MG/1 ML VIAL IV PRN ×2 (01:12→08:32)
[2020-12-18] MEDS: CEFEPIME 1,000 MG in SODIUM CHLORIDE 0.9% 100 ML IV SCH ×4 (03:33→21:18)
[2020-12-18 05:03] LABS: Basophils % 0.1 % (0.0-0.8); Hemoglobin 12.1 GM/DL (14.0-18.0); Immature Granulocytes Absolute 0.45 #; Lymphocytes # 0.6 10*3/uL (1.4-4.0); Lymphocytes % 2.5 % (21.2-54.2); Mean Corpuscular HGB Conc 31.8 GM/DL (32-36); Mean Corpuscular Volume 88.6 FL (87-102); Mean Platelet Volume 11.3 FL (9.6-12.0); Neutrophils % 91.4 % (38.7-73.9); Platelet Count 147 T/CUMM (130-400); Red Blood Count 4.29 MC/CUMM (3.8-5.5); Red Cell Distribution Width 14.9 % (9.3-17.3); White Blood Count 22.8 T/CUMM (4-12)
[2020-12-18 05:25] LABS: Calcium 8.7 MG/DL (8.5-10.1); Osmolality,Calculated 294.1 MOS/KG (273-304); Potassium 4.5 MMOL/L (3.5-5.1)
[2020-12-18 05:33] LABS: Hypochromasia Slight; Lymphocytes 3 % (20-55); Microcytosis 1+; Ovalocytes Slight; Platelet Estimate Adequate; Segmented Neutrophils 88 % (50-85); Total Cells Counted 100
[2020-12-18] MEDS ORDERED: LORazepam 2 MG/1 ML VIAL ONE (08:15)
[2020-12-18] MEDS: FUROSEMIDE 40 MG/4 ML VIAL IV SCH (09:10)
[2020-12-18] MEDS: methylPREDNISolone SOD SUC 40 MG/1 ML VIAL IV SCH ×2 (09:10→22:20)
[2020-12-18] MEDS: RIVASTIGMINE 9.5 MG/24 HR PATCH TRANSDERM SCH (09:11)
[2020-12-18] MEDS: POLYETHYLENE GLYCOL POWDER 17 GM PACK PO SCH ×2 (10:10→20:43)
[2020-12-18 10:49] LABS: Allen Test Positive; Pt O2 Delivery Device Other
[2020-12-18 10:50] LABS: ABG Base Excess 7.2 MMOL/L (-2.5-2.5); ABG HCO3 30.9 MMOL/L (20-26); ABG Oxygen Saturation 95.3 % (95-100); ABG PCO2 46.3 MM HG (35-48); ABG PH 7.451 (7.35-7.45); ABG PO2 77.1 MM HG (80-95); ABG TCO2 28.1 MMOL/L (23-27)
[2020-12-18] MEDS: CHOLECALCIFEROL 1,000 UNIT TABLET PO SCH (11:36)
[2020-12-18] MEDS: ASCORBIC ACID 500 MG TABLET PO SCH ×2 (11:36→20:43)
[2020-12-18] MEDS: ZINC SULFATE 220 MG CAPSULE PO SCH (11:36)
[2020-12-18] MEDS: APIXABAN 5 MG TABLET PO SCH ×2 (11:36→20:44)
[2020-12-18] MEDS: FAMOTIDINE 20 MG TABLET PO SCH (20:44)
[2020-12-19] MEDS: HALOPERIDOL 5 MG/ML AMP IM PRN ×2 (00:01→09:32)
[2020-12-19] MEDS: LORazepam 2 MG/1 ML VIAL IV PRN (01:11)
[2020-12-19] MEDS: CEFEPIME 1,000 MG in SODIUM CHLORIDE 0.9% 100 ML IV SCH ×2 (02:22→08:51)
[2020-12-19 03:19] LABS: ABG Base Excess 6.3 MMOL/L (-2.5-2.5); ABG HCO3 30.1 MMOL/L (20-26); ABG Oxygen Saturation 97.6 % (95-100); ABG TCO2 28.3 MMOL/L (23-27)
[2020-12-19 05:07] LABS: Basophils % 0.1 % (0.0-0.8); Hemoglobin 13.3 GM/DL (14.0-18.0); Immature Granulocytes % 1.6 %; Immature Granulocytes Absolute 0.46 #; Lymphocytes # 0.8 10*3/uL (1.4-4.0); Lymphocytes % 2.8 % (21.2-54.2); Mean Corpuscular HGB Conc 32.4 GM/DL (32-36); Mean Corpuscular Volume 88.9 FL (87-102); Monocytes % 4.6 % (1.7-12.7); Neutrophils % 90.9 % (38.7-73.9); Red Blood Count 4.61 MC/CUMM (3.8-5.5); Red Cell Distribution Width 15.1 % (9.3-17.3); White Blood Count 28.4 T/CUMM (4-12)
[2020-12-19 05:08] LABS: Platelet Count 78 T/CUMM (130-400)
[2020-12-19 05:19] LABS: Albumin 2.1 G/DL (3.4-5.0); Bilirubin,Total 0.8 MG/DL (0.2-1.0); Calcium 9.1 MG/DL (8.5-10.1); Osmolality,Calculated 308.4 MOS/KG (273-304); Potassium 4.6 MMOL/L (3.5-5.1); Total Protein 7.4 G/DL (6.4-8.3)
[2020-12-19 05:48] LABS: Lymphocytes 5 % (20-55); Segmented Neutrophils 93 % (50-85)
[2020-12-19 05:49] LABS: Platelet Estimate Decreased; Total Cells Counted 100
[2020-12-19] MEDS: RIVASTIGMINE 9.5 MG/24 HR PATCH TRANSDERM SCH (08:38)
[2020-12-19] MEDS: POLYETHYLENE GLYCOL POWDER 17 GM PACK PO SCH ×2 (08:38→20:30)
[2020-12-19] MEDS: FUROSEMIDE 40 MG/4 ML VIAL IV SCH (08:38)
[2020-12-19] MEDS: ASCORBIC ACID 500 MG TABLET PO SCH ×2 (08:39→20:30)
[2020-12-19] MEDS: CHOLECALCIFEROL 1,000 UNIT TABLET PO SCH (08:39)
[2020-12-19] MEDS: APIXABAN 5 MG TABLET PO SCH ×2 (08:39→20:29)
[2020-12-19] MEDS: ZINC SULFATE 220 MG CAPSULE PO SCH (08:39)
[2020-12-19] MEDS: methylPREDNISolone SOD SUC 40 MG/1 ML VIAL IV SCH ×3 (09:16→22:35)
[2020-12-19] MEDS: FAMOTIDINE 20 MG TABLET PO SCH (20:30)
[2020-12-20] MEDS: LORazepam 2 MG/1 ML VIAL IV PRN ×3 (00:05→08:12)
[2020-12-20 02:48] LABS: ABG Base Excess 6.6 MMOL/L (-2.5-2.5); ABG HCO3 31.1 MMOL/L (20-26); ABG Oxygen Saturation 95.1 % (95-100); ABG PCO2 43.7 MM HG (35-48); ABG PO2 80.4 MM HG (80-95); ABG TCO2 32.4 MMOL/L (23-27)
[2020-12-20 04:37] LABS: Basophils # 0.1 10*3/uL (0.0-0.2); Basophils % 0.1 % (0.0-0.8); Hematocrit 42.8 VOL% (42.0-52.0); Hemoglobin 13.5 GM/DL (14.0-18.0); Immature Granulocytes % 1.7 %; Immature Granulocytes Absolute 0.59 #; Lymphocytes # 1.1 10*3/uL (1.4-4.0); Lymphocytes % 3.1 % (21.2-54.2); Mean Corpuscular HGB Conc 31.5 GM/DL (32-36); Mean Corpuscular Volume 88.4 FL (87-102); Monocytes % 3.6 % (1.7-12.7); Neutrophils % 91.5 % (38.7-73.9); Red Blood Count 4.84 MC/CUMM (3.8-5.5); Red Cell Distribution Width 15.7 % (9.3-17.3); White Blood Count 35.7 T/CUMM (4-12)
[2020-12-20 04:40] LABS: Platelet Count 26 T/CUMM (130-400)
[2020-12-20] MEDS ORDERED: SODIUM CHLORIDE 0.9% 1,000 ML IV PRN ×2 (04:46→11:37)
[2020-12-20 05:12] LABS: Albumin 2.2 G/DL (3.4-5.0); Bilirubin,Total 1.2 MG/DL (0.2-1.0); Calcium 9.5 MG/DL (8.5-10.1); Osmolality,Calculated 334.3 MOS/KG (273-304); Potassium 4.2 MMOL/L (3.5-5.1); Total Protein 7.5 G/DL (6.4-8.3)
[2020-12-20] MEDS: methylPREDNISolone SOD SUC 40 MG/1 ML VIAL IV SCH ×2 (06:31→18:06)
[2020-12-20 07:13] LABS: Lymphocytes 1 % (20-55); Metamyelocytes 2 %; Segmented Neutrophils 92 % (50-85); Total Cells Counted 100
[2020-12-20 07:14] LABS: Hypochromasia 2+; Microcytosis 1+; Platelet Estimate Decreased; Schistocytes Few; Target Cells 1+
[2020-12-20] MEDS: APIXABAN 5 MG TABLET PO SCH ×2 (08:09→20:35)
[2020-12-20] MEDS: CHOLECALCIFEROL 1,000 UNIT TABLET PO SCH (08:10)
[2020-12-20] MEDS: RIVASTIGMINE 9.5 MG/24 HR PATCH TRANSDERM SCH (08:10)
[2020-12-20] MEDS: ASCORBIC ACID 500 MG TABLET PO SCH ×2 (08:10→20:36)
[2020-12-20] MEDS: ZINC SULFATE 220 MG CAPSULE PO SCH (08:10)
[2020-12-20] MEDS: FUROSEMIDE 40 MG/4 ML VIAL IV SCH (08:11)
[2020-12-20] MEDS: POLYETHYLENE GLYCOL POWDER 17 GM PACK PO SCH ×2 (08:11→20:35)
[2020-12-20] MEDS ORDERED: DEXMEDETOMIDINE 200 MCG in SODIUM CHLORIDE 0.9% 48 ML IV PRN (08:49)
[2020-12-20] MEDS: DEXTROSE 5% 1,000 ML IV SCH (09:34)
[2020-12-20] MEDS: FAMOTIDINE 20 MG TABLET PO SCH (20:35)
[2020-12-21 04:27] LABS: ABG Base Excess 6.9 MMOL/L (-2.5-2.5); ABG Oxygen Saturation 91.6 % (95-100); ABG PCO2 42.3 MM HG (35-48); ABG PH 7.483 (7.35-7.45); ABG PO2 65.7 MM HG (80-95); ABG TCO2 32.3 MMOL/L (23-27); Allen Test Positive; Pt O2 Delivery Device BIPAP
[2020-12-21 05:08] LABS: Basophils # 0.1 10*3/uL (0.0-0.2); Basophils % 0.2 % (0.0-0.8); Hematocrit 40.8 VOL% (42.0-52.0); Hemoglobin 13.1 GM/DL (14.0-18.0); Immature Granulocytes % 2.1 %; Immature Granulocytes Absolute 0.83 #; Lymphocytes # 1.8 10*3/uL (1.4-4.0); Lymphocytes % 4.5 % (21.2-54.2); Mean Corpuscular HGB Conc 32.1 GM/DL (32-36); Mean Corpuscular Volume 88.1 FL (87-102); Monocytes % 5.2 % (1.7-12.7); NRBC # 0.02 10*3/uL; Red Blood Count 4.63 MC/CUMM (3.8-5.5); White Blood Count 38.9 T/CUMM (4-12)
[2020-12-21 05:21] LABS: Platelet Count 21 T/CUMM (130-400)
[2020-12-21 05:29] LABS: Calcium 8.7 MG/DL (8.5-10.1); Potassium 4.7 MMOL/L (3.5-5.1)
[2020-12-21 05:43] LABS: Calcium 9.1 MG/DL (8.5-10.1); Ferritin 2343.6 ng/ml (26-388); Osmolality,Calculated 350.3 MOS/KG (273-304); Potassium 4.5 MMOL/L (3.5-5.1)
[2020-12-21] MEDS: DEXTROSE 5% 1,000 ML IV SCH (05:43)
[2020-12-21] MEDS: methylPREDNISolone SOD SUC 40 MG/1 ML VIAL IV SCH ×2 (06:01→18:06)
[2020-12-21 06:18] LABS: Anisocytosis 1+; Band Neutrophils 5 % (0-10); Lymphocytes 4 % (20-55); Macrocytosis 1+; Metamyelocytes 1 %; Platelet Estimate Decreased; Poikilocytosis Slight; Segmented Neutrophils 85 % (50-85); Total Cells Counted 100
[2020-12-21 06:19] LABS: Target Cells Few
[2020-12-21] MEDS: CHOLECALCIFEROL 1,000 UNIT TABLET PO SCH (09:03)
[2020-12-21] MEDS: ASCORBIC ACID 500 MG TABLET PO SCH (09:03)
[2020-12-21] MEDS: ZINC SULFATE 220 MG CAPSULE PO SCH (09:04)
[2020-12-21 10:38] LABS: Bilirubin,Urine Negative (Negative); Blood, Urine Large mg/dL (Negative); Glucose,Urine (UA) Negative (Negative); Granular Casts,Urine 8 /LPF (0-1); Hyaline Casts,Urine 25 /LPF (0-3); Ketones,Urine Negative (Negative); Mucus,Urine Occasional /LPF (Occasional); Nitrite,Urine Negative (Negative); Protein,Urine 100 MG/DL; RBC,Urine 300 /HPF (0-4); Squamous Epithelial Cell,Urine Occasional /HPF (0-10); Urine Appearance CLOUDY (Clear); Urine Color Yellow (Yellow); Urine Specific Gravity 1.014 (1.001-1.035); Urine Urobilinogen < 2.0 EU/DL (0.2-1.0); WBC,Urine 3 /HPF (0-6)
[2020-12-21 12:33] LABS: Calcium 8.5 MG/DL (8.5-10.1); Osmolality,Calculated 358.3 MOS/KG (273-304); Potassium 5.9 MMOL/L (3.5-5.1)
[2020-12-21] MEDS ORDERED: DEXTROSE 50% 25 GM/50 ML VIAL IV ONE (12:51)
[2020-12-21] MEDS ORDERED: CALCIUM GLUCONATE 1,000 MG in SODIUM CHLORIDE 0.9% 100 ML IV ONE (12:52)
[2020-12-21] MEDS ORDERED: INSULIN REGULAR 100 UNIT/ML IV ONE (12:52)
[2020-12-21] MEDS ORDERED: LORazepam 2 MG/1 ML VIAL IV PRN (16:11)
[2020-12-21] MEDS ORDERED: MORPHINE 4 MG/1 ML VIAL IV PRN (16:11)
[2020-12-21 19:43] VITALS: BP 111/46
== END 2020-12-21 22:11 | disposition expired | DRG 193 ==
LOC: N.ED 13:29 → SUATTDRO 16:41 → N.EDINP 16:41 → N.5E 17:10 → N.CC 12-14 10:29 → N.5E 12-21 17:41
PROVIDERS: ADMIT Emergency Medicine; ATTEND Family Medicine